=== PATIENT | female | born 1955 | race Caucasian/White ===

== ENCOUNTER → 2016-09-09 | Outpatient (CLI) | payer OTHER ==
--- NOTE | 2016-09-09 12:02 | REP ---
Clinical: Lung cancer screening. Technique: Axial low-dose noncontrast images. Findings: The bilateral lung gomez are well-aerated, and relatively symmetric. Mild chronic interstitial changes are appreciated. No area of consolidation, nodule or mass lesion is appreciated. No obvious pleural effusion. Tracheobronchial tree appears patent. Mediastinum appears grossly normal. Surrounding musculoskeletal structures without focal osseous abnormality identified. Impression: Minimal chronic age-related changes. Negative examination for consolidation, nodule or mass lesion. Signed by Andrew Huang MD 09/09/2016 11:53 A
== END | disposition home or self-care (01) ==
LOC: M RAD 09-05 08:36
PROVIDERS: ATTEND Internal Medicine
DX: F17.200 Nicotine dependence, unspecified, uncomplicated (principal)

== ENCOUNTER 2016-09-14 15:28 | Emergency (ER) | payer OTHER ==
[2016-09-14] MEDS ORDERED: DERMABOND TOPICAL SKIN ADHESIVE As Ordered ONE (16:56)
--- NOTE | 2016-09-14 17:30 | EDDOCDS ---
Nurse's Notes [facility] Name: Ce Pickett Age: 60 yrs Sex: Female : 1955 Arrival Date: 09/14/2016 Time: 15:28 Bed PR2 / 26 Private MD: Other - Complete Info On Cds Diagnosis: Laceration without foreign body of right thumb with damage to nail Presentation: 09/14 15:33 Presenting complaint: Patient states: was slicing vegetable on a mandolin and cut right srm thumb. dressed prior to arrival. Adult Sepsis Screening: The patient does not have new or worsening altered mentation. Patient's respiratory rate is less than 22. Systolic blood pressure is greater than 100. Patient has a qSOFA score of 0- Negative Sepsis Screen. Suicide/Homicide risk assessment- the patient denies having any suicidal and/or homicidal ideations and does not present with any other emotional, behavioral or mental health complaints. Status: The patient is a dependent. Transition of care: patient was not received from another setting of care. 15:33 Acuity: EDVIN Level 4 srm 15:33 Method Of Arrival: Walkin/Carried/Asstd srm Triage Assessment: 15:35 General: Appears in no apparent distress, Behavior is appropriate for age, cooperative. srm Pain: Pain currently is 4 out of 10 on a pain scale. Musculoskeletal: Circulation, motion, and sensation intact. 15:36 Pt Declines HIV testing. srm Historical: - Allergies: no known allergies; - Home Meds: 1. vitamins daily - PMHx: none; - PSHx: hernia; Tubal ligation; bunionectomy; - Social history: Smoking status: Patient uses tobacco products, current every day smoker. No barriers to communication noted, The patient speaks fluent [place], Speaks appropriately for age. - Family history: Not pertinent. - : The pt / caregiver states he / she is not on anticoagulants. Home medication list is obtained from the patient. - Exposure Risk Screening:: None identified. Screenin:24 Screening information is obtained from the patient. Fall risk: No risks identified. bcj Assistance ADL's: requires no assistance with activities of daily living. Abuse/DV Screen: The patient / caregiver reports he/she is: not in a situation that causes fear, pain or injury. Nutritional screening: No deficits noted. Advance Directives: Currently, there is no health care proxy. home support is adequate. Assessment: 17:24 Musculoskeletal: Circulation, motion, and sensation intact Capillary refill < 3 seconds bcj in right fingers. Vital Signs: 15:31 BP 115 / 63; Pulse 88; Resp 18 S; Temp 97.7(O); Pulse Ox 98% on R/A; Weight 61.23 kg gr2 (R); Height 5 ft. 3 in. (160.02 cm) (R); Pain 3/10; 17:22 BP 145 / 71; Pulse 88; Resp 16; Pulse Ox 96% on R/A; Pain 0/10; sew 17:22 Temp 98.0(O); sew 15:31 Body Mass Index 23.91 (61.23 kg, 160.02 cm) gr2 Vitals: 15:31 Log In Time: September 14, 2016 at 15:31. gr2 ED Course: 15:30 Patient visited by Sung Ingram. gr2 15:30 Other - Complete Info On Cds is Private Physician. gr2 15:30 Patient moved to Waiting gr2 15:32 Patient visited by Sung Ingram. gr2 15:32 Patient moved to Pre RCE gr2 15:34 Triage Initiated srm 16:14 Patient moved to Triage 1 sew 16:35 Padmaja Bassett PA-C is [facility]. dt4 16:35 Keisha Jin MD is Attending Physician. dt4 16:35 Patient visited by Padmaja Bassett PA-C. dt4 16:46 Patient moved to PR2 / 26 sew 16:54 [facility] Payment Agreement was scanned into [employer] and attached to record. gjb 17:14 Patient visited by Padmaja Bassett PA-C. dt4 17:22 Patient visited by Tata Daniels. sew 17:23 Patient visited by Tata Daniels. sew 17:24 The patient / caregiver is instructed regarding the plan of care and ED course. bcj 17:24 No IV's were initiated during this patient's visit. bcj 17:25 No apparent distress. Resting quietly. Awaiting disposition. bcj 17:25 Assist provider with laceration repair using Dermabond. Laceration was <2.5 cm. with a bcj simple repair. Performed by Padmaja Bassett PA-C Set up tray. Patient tolerated well. Order Results: There are currently no results for this order. Outcome: 17:15 Discharge ordered by Provider. dt4 17:25 Discharge Assessment: patient administered narcotics - no. The following High Risk [facility] Discharge criteria are identified:. Condition: stable. Discharge instructions given to patient, Instructed on discharge instructions, follow up and referral plans. medication usage. No special radiology studies were completed. Property :Personal belongings accompany Pt. 17:29 Patient left the ED. [facility] Signatures: Pedro Duran, RN RN Ana Mena, RN RN Tata Gutierrez [place]ains[place] gr2 Padmaja Bassett PA-C PA-C dt4 Lesa Rubin MTDD
--- NOTE | 2016-09-14 17:30 | EDDOCDS ---
Physician Documentation [facility] Name: Ce Pickett Age: 60 yrs Sex: Female : 1955 Arrival Date: 09/14/2016 Time: 15:28 Bed PR Private MD: Other - Complete Info On Cds Disposition: 09/14/16 17:15 Discharged to Home/Self Care. Impression: Laceration without foreign body of right thumb with damage to nail. - Condition is Stable. - Discharge Instructions: Tissue Adhesive Wound Care. - Medication Reconciliation, Local Pharmacy Hours form. - Follow up: Emergency Department; When: As needed; Reason: Worsening of conditions. Follow up: Private Physician; When: 2 - 3 days; Reason: Wound/Symptom Recheck, Recheck today's complaints, Continuance of care. - Problem is new. - Symptoms have improved. Historical: - Allergies: no known allergies; - Home Meds: 1. vitamins daily - PMHx: none; - PSHx: hernia; Tubal ligation; bunionectomy; - Social history: Smoking status: Patient uses tobacco products, current every day smoker. No barriers to communication noted, The patient speaks fluent Mauritian, Speaks appropriately for age. - Family history: Not pertinent. - : The pt / caregiver states he / she is not on anticoagulants. Home medication list is obtained from the patient. - Exposure Risk Screening:: None identified. Vital Signs: 09/14 15:31 BP 115 / 63; Pulse 88; Resp 18 S; Temp 97.7(O); Pulse Ox 98% on R/A; Weight 61.23 kg / gr2 134.99 lbs (R); Height 5 ft. 3 in. (160.02 cm) (R); Pain 3/10; 17:22 BP 145 / 71; Pulse 88; Resp 16; Pulse Ox 96% on R/A; Pain 0/10; sew 17:22 Temp 98.0(O); sew 15:31 Body Mass Index 23.91 (61.23 kg, 160.02 cm) gr2 MDM: 16:51 Dermabond to bedside ordered. dt4 16:51 Wound Care ordered. dt4 16:54 [facility] was scanned into [employer] and attached to record. aurelia 16:54 Financial registration complete. fred Signatures: Pedro Duran RN RN Ana Mena RN Padmaja Gandara PA-C PA-C dt4 Lesa Rubin The chart was reviewed and I authenticate all verbal orders and agree with the evaluation and treatment provided.Attachments: 16:54 [facility] Payment Agreement fred MTDD
--- NOTE | 2016-09-16 18:29 | EDDOCDS ---
Physician Documentation [facility] Name: Ce Pickett Age: 60 yrs Sex: Female : 1955 Arrival Date: 09/14/2016 Time: 15:28 Bed PR Private MD: Other - Complete Info On Cds Disposition: 09/14/16 17:15 Discharged to Home/Self Care. Impression: Laceration without foreign body of right thumb with damage to nail. - Condition is Stable. - Discharge Instructions: Tissue Adhesive Wound Care. - Medication Reconciliation, Local Pharmacy Hours form. - Follow up: Emergency Department; When: As needed; Reason: Worsening of conditions. Follow up: Private Physician; When: 2 - 3 days; Reason: Wound/Symptom Recheck, Recheck today's complaints, Continuance of care. - Problem is new. - Symptoms have improved. Historical: - Allergies: no known allergies; - Home Meds: 1. vitamins daily - PMHx: none; - PSHx: hernia; Tubal ligation; bunionectomy; - Social history: Smoking status: Patient uses tobacco products, current every day smoker. No barriers to communication noted, The patient speaks fluent Jamaican, Speaks appropriately for age. - Family history: Not pertinent. - : The pt / caregiver states he / she is not on anticoagulants. Home medication list is obtained from the patient. - Exposure Risk Screening:: None identified. Vital Signs: 09/14 15:31 BP 115 / 63; Pulse 88; Resp 18 S; Temp 97.7(O); Pulse Ox 98% on R/A; Weight 61.23 kg / gr2 134.99 lbs (R); Height 5 ft. 3 in. (160.02 cm) (R); Pain 3/10; 17:22 BP 145 / 71; Pulse 88; Resp 16; Pulse Ox 96% on R/A; Pain 0/10; sew 17:22 Temp 98.0(O); sew 15:31 Body Mass Index 23.91 (61.23 kg, 160.02 cm) gr2 MDM: 16:51 Dermabond to bedside ordered. dt4 16:51 Wound Care ordered. dt4 16:54 [facility] [place] Payment Agreement was scanned into [employer] and attached to record. [email or web address] 16:54 Financial registration complete. gjb 21:03 T-Sheet-- Draft Copy was scanned into [employer] and attached to record. klr Signatures: Pedro Duran RN RN bcj Michelson, Staci, RN RN srm Tschudi, Diane, PA-C PA-C dt4 Beck, Gabriela gjb Redder, Kathie klr The chart was reviewed and I authenticate all verbal orders and agree with the evaluation and treatment provided.Attachments: 16:54 [facility] Payment Agreement banner 21:03 T-Sheet-- Draft Copy klr Chart Complete MTDD
--- NOTE | 2016-09-16 18:29 | EDDOCDS ---
Physician Documentation [facility] Name: Ce Pickett Age: 60 yrs Sex: Female : 1955 Arrival Date: 09/14/2016 Time: 15:28 Bed PR Private MD: Other - Complete Info On Cds Disposition: 09/14/16 17:15 Discharged to Home/Self Care. Impression: Laceration without foreign body of right thumb with damage to nail. - Condition is Stable. - Discharge Instructions: Tissue Adhesive Wound Care. - Medication Reconciliation, Local Pharmacy Hours form. - Follow up: Emergency Department; When: As needed; Reason: Worsening of conditions. Follow up: Private Physician; When: 2 - 3 days; Reason: Wound/Symptom Recheck, Recheck today's complaints, Continuance of care. - Problem is new. - Symptoms have improved. Historical: - Allergies: no known allergies; - Home Meds: 1. vitamins daily - PMHx: none; - PSHx: hernia; Tubal ligation; bunionectomy; - Social history: Smoking status: Patient uses tobacco products, current every day smoker. No barriers to communication noted, The patient speaks fluent Malaysian, Speaks appropriately for age. - Family history: Not pertinent. - : The pt / caregiver states he / she is not on anticoagulants. Home medication list is obtained from the patient. - Exposure Risk Screening:: None identified. Vital Signs: 09/14 15:31 BP 115 / 63; Pulse 88; Resp 18 S; Temp 97.7(O); Pulse Ox 98% on R/A; Weight 61.23 kg / gr2 134.99 lbs (R); Height 5 ft. 3 in. (160.02 cm) (R); Pain 3/10; 17:22 BP 145 / 71; Pulse 88; Resp 16; Pulse Ox 96% on R/A; Pain 0/10; sew 17:22 Temp 98.0(O); sew 15:31 Body Mass Index 23.91 (61.23 kg, 160.02 cm) gr2 MDM: 16:51 Dermabond to bedside ordered. dt4 16:51 Wound Care ordered. dt4 16:54 [facility] [place] Payment Agreement was scanned into [employer] and attached to record. [email or web address] 16:54 Financial registration complete. gjb 21:03 T-Sheet-- Draft Copy was scanned into [employer] and attached to record. klr Signatures: Pedro Duran RN RN bcj Michelson, Staci, RN RN srm Tschudi, Diane, PA-C PA-C dt4 Beck, Gabriela gjb Redder, Kathie klr The chart was reviewed and I authenticate all verbal orders and agree with the evaluation and treatment provided.Attachments: 16:54 [facility] Payment Agreement [facility] 21:03 T-Sheet-- Draft Copy klr Chart Complete MTDD
--- NOTE | 2016-09-16 18:29 | EDDOCDS ---
Nurse's Notes [facility] Name: Ce Pickett Age: 60 yrs Sex: Female : 1955 Arrival Date: 09/14/2016 Time: 15:28 Bed PR2 / 26 Private MD: Other - Complete Info On Cds Diagnosis: Laceration without foreign body of right thumb with damage to nail Presentation: 09/14 15:33 Presenting complaint: Patient states: was slicing vegetable on a mandolin and cut right srm thumb. dressed prior to arrival. Adult Sepsis Screening: The patient does not have new or worsening altered mentation. Patient's respiratory rate is less than 22. Systolic blood pressure is greater than 100. Patient has a qSOFA score of 0- Negative Sepsis Screen. Suicide/Homicide risk assessment- the patient denies having any suicidal and/or homicidal ideations and does not present with any other emotional, behavioral or mental health complaints. Status: The patient is a dependent. Transition of care: patient was not received from another setting of care. 15:33 Acuity: EDVIN Level 4 srm 15:33 Method Of Arrival: Walkin/Carried/Asstd srm Triage Assessment: 15:35 General: Appears in no apparent distress, Behavior is appropriate for age, cooperative. srm Pain: Pain currently is 4 out of 10 on a pain scale. Musculoskeletal: Circulation, motion, and sensation intact. 15:36 Pt Declines HIV testing. srm Historical: - Allergies: no known allergies; - Home Meds: 1. vitamins daily - PMHx: none; - PSHx: hernia; Tubal ligation; bunionectomy; - Social history: Smoking status: Patient uses tobacco products, current every day smoker. No barriers to communication noted, The patient speaks fluent Lithuanian, Speaks appropriately for age. - Family history: Not pertinent. - : The pt / caregiver states he / she is not on anticoagulants. Home medication list is obtained from the patient. - Exposure Risk Screening:: None identified. Screenin:24 Screening information is obtained from the patient. Fall risk: No risks identified. bcj Assistance ADL's: requires no assistance with activities of daily living. Abuse/DV Screen: The patient / caregiver reports he/she is: not in a situation that causes fear, pain or injury. Nutritional screening: No deficits noted. Advance Directives: Currently, there is no health care proxy. home support is adequate. Assessment: 17:24 Musculoskeletal: Circulation, motion, and sensation intact Capillary refill < 3 seconds bcj in right fingers. Vital Signs: 15:31 BP 115 / 63; Pulse 88; Resp 18 S; Temp 97.7(O); Pulse Ox 98% on R/A; Weight 61.23 kg gr2 (R); Height 5 ft. 3 in. (160.02 cm) (R); Pain 3/10; 17:22 BP 145 / 71; Pulse 88; Resp 16; Pulse Ox 96% on R/A; Pain 0/10; sew 17:22 Temp 98.0(O); sew 15:31 Body Mass Index 23.91 (61.23 kg, 160.02 cm) gr2 Vitals: 15:31 Log In Time: September 14, 2016 at 15:31. gr2 ED Course: 15:30 Patient visited by Sung Ingram. gr2 15:30 Other - Complete Info On Cds is Private Physician. gr2 15:30 Patient moved to Waiting gr2 15:32 Patient visited by Sung Ingram. gr2 15:32 Patient moved to Pre RCE gr2 15:34 Triage Initiated srm 16:14 Patient moved to Triage 1 sew 16:35 Padmaja Bassett PA-C is [facility]. dt4 16:35 Keisha Jin MD is Attending Physician. dt4 16:35 Patient visited by Padmaja Bassett PA-C. dt4 16:46 Patient moved to PR2 / 26 sew 16:54 [facility] Payment Agreement was scanned into [employer] and attached to record. gjb 17:14 Patient visited by Padmaja Bassett PA-C. dt4 17:22 Patient visited by Tata Daniels. sew 17:23 Patient visited by Tata Daniels. sew 17:24 The patient / caregiver is instructed regarding the plan of care and ED course. bcj 17:24 No IV's were initiated during this patient's visit. bcj 17:25 No apparent distress. Resting quietly. Awaiting disposition. bcj 17:25 Assist provider with laceration repair using Dermabond. Laceration was <2.5 cm. with a bcj simple repair. Performed by Padmaja Bassett PA-C Set up tray. Patient tolerated well. 21:03 T-Sheet-- Draft Copy was scanned into [employer] and attached to record. jonathan Order Results: There are currently no results for this order. Outcome: 17:15 Discharge ordered by Provider. dt4 17:25 Discharge Assessment: patient administered narcotics - no. The following High Risk j Discharge criteria are identified:. Condition: stable. Discharge instructions given to patient, Instructed on discharge instructions, follow up and referral plans. medication usage. No special radiology studies were completed. Property :Personal belongings accompany Pt. 17:29 Patient left the ED. j Signatures: Pedro Duran, RN RN Ana Mena, RN BRENDA Daniels, Sung Aguiar gr2 Padmaja Bassett PA-C PA-C dt4 Lesa Rubin Kathie klr Chart Complete NAVYA
== END 2016-09-14 17:29 | disposition home or self-care (01) ==
LOC: M ED 15:28
DX: S61.111A Laceration without foreign body of right thumb with damage to nail, initial encounter (principal); W27.4XXA Contact with kitchen utensil, initial encounter; Y92.090 Kitchen in other non-institutional residence as the place of occurrence of the external cause; Y93.G1 Activity, food preparation and clean up; Y99.8 Other external cause status; F17.200 Nicotine dependence, unspecified, uncomplicated

== ENCOUNTER → 2021-01-11 | Outpatient (CLI) | payer MEDICARE, OTHER ==
--- NOTE | 2021-01-11 13:57 | REP ---
INDICATION: CHRONIC COUGH, NODULAR DENSITIES. COMPARISON: 09/09/2016 the only prior TECHNIQUE: Axial noncontrast images from the thoracic inlet to the upper abdomen using low-dose lung screening technique (LDCT). As per the protocol only lung window images were sent to the read station for interpretation FINDINGS: There is a new focal asymmetric density in the [place] basal segment of the left lower lobe abutting the major fissure. This measures 1.5 cm. Other bibasilar curvilinear densities are seen, however, these are unchanged and consistent with chronic fibrotic and/or subsegmental atelectatic changes. No other abnormal nodules, masses, or opacities have developed. There is mild stable cylindrical bronchiectasis. Grossly, the mediastinum and pulmonary vel are unchanged. Grossly, the imaged upper abdomen and imaged osseous structures are unchanged. There are no pleural or pericardial effusions. IMPRESSION: New focal opacity in the left lower lobe as described above. This potentially represents focal subsegmental atelectatic change, however, according to the revised Fleischner society criteria this lesion potentially represents a category 4B lesion for which a 3 month follow-up CT is recommended. Other findings as described above. <Electronically signed by Guillermo Jaffe > 01/11/21 [id number]
== END ==
LOC: M RAD 13:10
PROVIDERS: ATTEND Nurse Practitioner Primary Care
DX: R91.1 Solitary pulmonary nodule (principal)

== ENCOUNTER → 2021-02-06 | Outpatient (CLI) | payer MEDICARE, OTHER ==
--- NOTE | 2021-02-06 10:16 | REPMRS ---
Patient History The patient states she has not had a clinical breast exam in over a year. Patient is postmenopausal. Family history of breast cancer in maternal aunt. Patient states no breast complaints today. Patient has signed MRS History Sheet. Digital Woman Screen Mammo: February 06, 2021 - Exam #: [id number] Bilateral CC and MLO view(s) were taken. Technologist: Marylou Pfeiffer, Technologist Prior study comparison: May 20, 2017, bilateral digital mammo screening bilat, performed at [facility]. 2014, digital woman screen mammo, performed at [facility]. FINDINGS: There are scattered fibroglandular densities. Screening. Digital screening (2D) mammography was performed bilaterally in the CC and MLO projections. Additionally, breast tomosynthesis (3D mammography) was performed bilaterally in the CC and MLO projections. Todays exam was compared to the prior exam/exams. By history, the patient has no complaints of a palpable breast abnormality or other significant breast complaints. The breasts are unchanged in size and shape. There are no josé-soft tissue densities or spiculated masses. There is no internal architectural distortion. There are no suspicious josé-calcific clusters. Skin thickening or nipple retraction is not present. IMPRESSION: BI-RADS Category 1- Negative. There is no evidence of malignant alteration of the breasts. Followup examination recommended in one year. The Volpara volumetric breast density category is B, there are scattered areas of fibroglandular densities. This mammogram was read with the assistance of [employer],an FDA approved computer aided detection system for mammography. The lifetime Tyrer-Cuzick score is 8.9 % Negative x-ray reports should not delay surgical consultation if a dominant or clinically suspicious mass is present. Not all breast cancers can be identified by mammography. Therefore, we recommend that you continue to perform regular breast self-examination and physical examination and then promptly contact your physician of any concerns or changes. Adenosis and dense breasts may obscure an underlying neoplasm. Assessment: BI-RADS/ACR category 1 mammogram. Negative Mammogram. Recommendation Routine screening mammogram of both breasts in 1 year. Electronically Signed By: Guillermo Jaffe DO 02/06/21 [id number]
== END ==
LOC: M WHC 09:21
PROVIDERS: ATTEND Nurse Practitioner Primary Care
DX: Z12.31 Encounter for screening mammogram for malignant neoplasm of breast (principal)

== ENCOUNTER → 2022-03-21 | Outpatient (CLI) | payer MEDICARE, OTHER | LOC: M WHC 09:14 | PROVIDERS: ATTEND Student in an Organized Health Care Education/Training Program | DX: Z12.31 Encounter for screening mammogram for malignant neoplasm of breast (principal) ==

== ENCOUNTER → 2022-05-08 | Outpatient (CLI) | payer MEDICARE, OTHER | LOC: M RAD 12:29 | PROVIDERS: ATTEND Student in an Organized Health Care Education/Training Program | DX: R91.1 Solitary pulmonary nodule (principal) ==

== ENCOUNTER → 2023-11-19 | Outpatient (CLI) | payer MEDICARE, OTHER | LOC: M RAD 15:20 | PROVIDERS: ATTEND Family Medicine | DX: Z87.891 Personal history of nicotine dependence (principal) ==

== ENCOUNTER → 2024-03-29 | Outpatient (REF) | payer MEDICARE, OTHER | LOC: M LAB REF 19:11 | PROVIDERS: ATTEND Nurse Practitioner Family | DX: H60.91 Unspecified otitis externa, right ear (principal) ==

== ENCOUNTER → 2024-12-05 | Outpatient (CLI) | payer MEDICARE, OTHER ==
[2024-12-05 11:16] LABS: BASO # 0.1 10^3/uL (0.0-0.2); EOS # 0.2 10^3/uL (0.0-0.5); EOS % 3.7 % (0.0-3.0); HEMOGLOBIN 14.3 g/dl (12.0-15.5); LYMPH # 1.7 10^3/uL (1.5-5.0); MEAN CORPUSCULAR HEMOGLOBIN 29.7 pg (27.0-33.0); MEAN CORPUSCULAR HGB CONC 31.8 g/dl (32.0-36.5); MEAN CORPUSCULAR VOLUME 93.6 fl (80.0-96.0); MONO # 0.5 10^3/uL (0.0-0.8); MONO % 9.6 % (2.0-8.0); NEUTROPHILS # 2.8 10^3/uL (1.5-8.5); NEUTROPHILS % 53.5 % (36.0-66.0); PLATELET COUNT, AUTOMATED 287 10^3/uL (150-450); RED BLOOD COUNT 4.81 10^6/uL (4.00-5.40); WHITE BLOOD COUNT 5.2 10^3/uL (4.0-10.0)
[2024-12-05 11:41] LABS: ALBUMIN 3.8 G/DL (3.2-5.2); BILIRUBIN,TOTAL 0.4 MG/DL (0.3-1.2); CALCIUM LEVEL 9.3 MG/DL (8.3-10.6); CHOLESTEROL RISK RATIO 2.85 (<5); CREATININE FOR GFR 0.72 MG/DL (0.55-1.30); GLOMERULAR FILTRATION RATE 89.9 (>39); HDL CHOLESTEROL 67.2 MG/DL (>40); LDL CHOLESTEROL 109.4 MG/DL (<100); NON-HDL-C 124.8 MG/DL; POTASSIUM SERUM 4.5 MMOL/L (3.5-5.1); TOTAL PROTEIN 7.2 G/DL (5.7-8.2)
[2024-12-05 12:45] LABS: HEMOGLOBIN A1c 5.4 % (4.0-6.0)
[2024-12-05 12:50] LABS: FERRITIN 17.6 NG/ML (7.3-270.7); THYROID STIMULATING HORMONE 6.328 uIU/ML (0.55-4.78); TOTAL 25(OH) VITAMIN D 93.8 NG/ML (20.0-100.0)
[2024-12-05 12:51] LABS: FREE T4 1.32 NG/DL (0.89-1.76)
[2024-12-05 13:31] LABS: PTH INTACT 35.6 PG/ML (18.5-88.0)
[2024-12-07 02:42] LABS: TISSUE TRANSGLUTAMINASE IgA < 1.0 U/mL (<15.0)
== END ==
LOC: M PLALAB 07:16
PROVIDERS: ATTEND Family Medicine
DX: E55.9 Vitamin D deficiency, unspecified (principal); E78.00 Pure hypercholesterolemia, unspecified; D50.9 Iron deficiency anemia, unspecified

== ENCOUNTER → 2024-12-12 | Outpatient (CLI) | payer MEDICARE, OTHER | LOC: M WHC 10:34 | PROVIDERS: ATTEND Family Medicine | DX: M81.0 Age-related osteoporosis without current pathological fracture (principal) ==

== ENCOUNTER → 2025-04-07 | Outpatient (CLI) | payer MEDICARE, OTHER ==
[2025-04-07 11:50] LABS: BASO # 0.0 10^3/uL (0.0-0.2); BASO % 0.8 % (0.0-1.0); EOS # 0.2 10^3/uL (0.0-0.5); EOS % 4.7 % (0.0-3.0); LYMPH # 1.6 10^3/uL (1.5-5.0); LYMPH % 33.2 % (24.0-44.0); MONO # 0.5 10^3/uL (0.0-0.8); MONO % 9.2 % (2.0-8.0); NEUTROPHILS # 2.5 10^3/uL (1.5-8.5); NEUTROPHILS % 51.9 % (36.0-66.0); PLATELET COUNT, AUTOMATED 270 10^3/uL (150-450)
[2025-04-07 12:27] LABS: ESTIMATED AVERAGE GLUCOSE 117.0 MG/DL (60-110)
[2025-04-07 12:28] LABS: TOTAL 25(OH) VITAMIN D 88.0 NG/ML (20.0-100.0)
[2025-04-07 12:29] LABS: VITAMIN B12 LEVEL 556.0 PG/ML (211-911)
[2025-04-07 12:30] LABS: ALT/SGPT 19.0 U/L (7.0-40); AST/SGOT 17.0 U/L (<34); CALCIUM LEVEL 9.3 MG/DL (8.3-10.6); CARBON DIOXIDE LEVEL 32.0 MMOL/L (20-31); CHLORIDE LEVEL 104.0 MMOL/L (98-107); CHOLESTEROL LEVEL 221.0 MG/DL (<200); CHOLESTEROL RISK RATIO 4.02 (<5); CREATININE FOR GFR 0.79 MG/DL (0.55-1.30); FREE T4 1.25 NG/DL (0.89-1.76); GLOMERULAR FILTRATION RATE 80.4 (>39); LDL CHOLESTEROL 138.7 MG/DL (<100); NON-HDL-C 166.1 MG/DL; POTASSIUM SERUM 4.3 MMOL/L (3.5-5.1); SODIUM LEVEL 142.0 MMOL/L (136-145); TRIGLYCERIDES LEVEL 137.0 MG/DL (<150)
[2025-04-07 12:32] LABS: PTH INTACT 25.3 PG/ML (18.5-88.0)
[2025-04-07 12:36] LABS: THYROGLOBULIN ANTIBODY 217.0 U/ML (<60.0); THYROID PEROXIDASE ANTIBODY 156.0 U/ML (<60.0)
[2025-04-10 09:37] LABS: INSULIN LEVEL 3.8 uIU/mL (<=18.4)
== END ==
LOC: M PLALAB 07:01
PROVIDERS: ATTEND Family Medicine
DX: E55.9 Vitamin D deficiency, unspecified (principal); R73.01 Impaired fasting glucose; E78.2 Mixed hyperlipidemia; J44.9 Chronic obstructive pulmonary disease, unspecified; D50.9 Iron deficiency anemia, unspecified

== ENCOUNTER → 2025-04-25 | Outpatient (CLI) | payer MEDICARE, OTHER ==
[~2025-04-25] MED LIST: ISOVUE-370 76% 100 ML VIAL ONE
== END ==
LOC: M PLAIMG 14:16
PROVIDERS: ATTEND Family Medicine
DX: R91.1 Solitary pulmonary nodule (principal)
CPT/HCPCS: 71260; Q9967